=== PATIENT | male | born 1955 | race Caucasian/White ===

== ENCOUNTER 2018-11-22 11:30 | Emergency (ER) | payer OTHER ==
[~2018-11-22] VITALS: Ht 177.8 cm; Wt 81.7 kg
[2018-11-22] MEDS ORDERED: BACTRIM DS TAB1 EACH PO (12:04)
[2018-11-22] MEDS ORDERED: TESSALON PERLE100 MG PO (12:04)
[2018-11-22] MEDS ORDERED: VENTOLIN HFA 1818 GM INH (12:04)
[2018-11-22 12:15] VITALS: BP 124/80
== END 2018-11-22 12:15 | disposition home or self-care (01) ==
LOC: ER 11:30
DX: J06.9 Acute upper respiratory infection, unspecified (principal); J40 Bronchitis, not specified as acute or chronic; L08.9 Local infection of the skin and subcutaneous tissue, unspecified; F17.210 Nicotine dependence, cigarettes, uncomplicated; Z95.5 Presence of coronary angioplasty implant and graft